=== PATIENT | female | born 1980 | race African-American/Black ===

== ENCOUNTER 2017-12-04 14:19 | Emergency (ER) | payer OTHER ==
[~2017-12-04] VITALS: Ht 162.6 cm; Wt 56.0 kg
[~2017-12-04 14:19] MED LIST: NORCO 5/3251 TABLET PO; PRENATAL TABLE1 EAC3 PO
[2017-12-04] MEDS ORDERED: NORCO 5/3251 TABLET PO (16:39)
[2017-12-04] MEDS ORDERED: MOTRIN600 MG PO (16:39)
[2017-12-04] MEDS ORDERED: AMOXICILLIN875 MG PO (16:39)
[2017-12-04 16:56] VITALS: BP 132/86
== END 2017-12-04 16:57 | disposition home or self-care (01) ==
LOC: EME 14:19
DX: K02.9 Dental caries, unspecified (principal)
CPT/HCPCS: 99281; 99284

== ENCOUNTER 2018-01-25 10:50 | Emergency (ER) | payer OTHER ==
[~2018-01-25] VITALS: Ht 165.1 cm; Wt 58.1 kg
[~2018-01-25 10:50] MED LIST changes: +AMOXICILLIN875 MG PO; +MOTRIN600 MG PO
[2018-01-25 10:55] VITALS: BP 118/84
[2018-01-25] MEDS ORDERED: PEN-VEE K,VEET500 MG PO (13:01)
[2018-01-25] MEDS ORDERED: MOTRIN800 MG PO (13:01)
== END 2018-01-25 13:29 | disposition home or self-care (01) ==
LOC: EME 10:50
DX: K02.9 Dental caries, unspecified (principal)
CPT/HCPCS: 99281; 99284

== ENCOUNTER 2018-04-11 21:35 | Emergency (ER) | payer OTHER ==
[~2018-04-11] VITALS: Ht 162.6 cm; Wt 56.9 kg
[~2018-04-11 21:35] MED LIST changes: +MOTRIN800 MG PO; +PEN-VEE K,VEET500 MG PO
[2018-04-11] MEDS ORDERED: AUGMENTIN875 MG PO (23:11)
[2018-04-11] MEDS ORDERED: MOTRIN800 MG PO (23:11)
[2018-04-11] MEDS ORDERED: NORCO 7.5/321 TABLET PO (23:11)
[2018-04-11] MEDS ORDERED: LIDOCAINE20 MG/1 M5 PO (23:11)
[2018-04-11 23:30] VITALS: BP 142/88
== END 2018-04-11 23:30 | disposition home or self-care (01) ==
LOC: EXP 21:35 → EME 21:35 → EXP 23:30
DX: K02.9 Dental caries, unspecified (principal)
CPT/HCPCS: 99281; 99283